=== PATIENT | male | born 1960 | race Caucasian/White ===

== ENCOUNTER → 2020-06-18 | Outpatient (CLI) | payer BC, OTHER | LOC: LABNPT 14:49 | PROVIDERS: ATTEND Family Medicine | DX: Z20.828 Contact with and (suspected) exposure to other viral communicable diseases (principal) | CPT/HCPCS: 87635 ==

== ENCOUNTER → 2020-08-10 | Outpatient (CLI) | payer BC ==
--- NOTE | 2020-08-10 16:32 | Diagnostic Imaging Report ---
PROCEDURE: US carotid duplex, bilateral. TECHNIQUE: Multiple Real-time grayscale images were obtained over the carotid arteries in various projections, bilaterally. Additional spectral analysis and color Doppler duplex images were also obtained. INDICATION: Dizziness, coronary artery disease. COMPARISON: There are no prior studies available for comparison. FINDINGS: There is mild soft plaque formation in both carotid systems. The flow velocities fail to show any evidence for a hemodynamically significant stenosis of the common or internal carotid arteries, however. Both vertebral arteries were noted and there was antegrade flow bilaterally. IMPRESSION: There is mild atherosclerotic disease involving both carotid systems. There is no evidence for a hemodynamically significant stenosis of the common or internal carotid arteries. Parameters based on the consensus panel Senior-Scale and Doppler ultrasound criteria published September 2003, Radiology, Volume 229. DOPPLER (peak systolic velocity M/S Right Left CCA 1.1 1.1 ICA Proximal 1.2 0.86 ICA Mid 1.2 0.70 ICA Distal 1.1 0.56 RATIO 1.1 0.79 ECA 1.2 1 VERT 0.6 0.54 Dictated by: Dictated on workstation # [id number]
== END ==
LOC: RAD 15:30
PROVIDERS: ATTEND Family Medicine
DX: I25.10 Atherosclerotic heart disease of native coronary artery without angina pectoris (principal); I65.23 Occlusion and stenosis of bilateral carotid arteries; Z20.828 Contact with and (suspected) exposure to other viral communicable diseases
CPT/HCPCS: 93880

== ENCOUNTER 2021-01-03 10:19 | Emergency (ER) | payer BC ==
[~2021-01-03] VITALS: Ht 177.8 cm; Wt 95.3 kg
[2021-01-03] MEDS ORDERED: NITROGLYCERIN 0.4 MG SL TABS BTL 25'S SL PRN (11:00)
[2021-01-03] MEDS ORDERED: ONDANSETRON 4 MG/2 ML (SDV) Z0FRAN IVP ONE (11:00)
[2021-01-03] MEDS ORDERED: LACTATED RINGERS 1,000 ML IV SCH (11:00)
[2021-01-03] MEDS ORDERED: PANTOPRAZOLE 40 MG (PROTONIX) VIAL IV ONE (11:00)
[2021-01-03] MEDS ORDERED: morphine INJ 10 MG/ML 1ML (SYR OR VIAL) IVP STA (11:00)
--- NOTE | 2021-01-03 11:07 | ED GI ---
General Chief Complaint: Abdominal/GI Problems Stated Complaint: H BP,N/V,DIZZINESS Nursing Triage Note: PT AMB TO [facility] 6 WITH WITH COMPLAINT OF ABD PAIN, N/V, AND HTN. STATES WOKE UP AT 0600 THIS MORNING NOT FEELING WELL AND TOOK BP, STATES WAS HIGH. AFTERWARDS HE STARTED VOMITING AND ABD PAIN. 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 Sepsis Screen: No Definite Risk Source of Information: Patient Exam Limitations: No Limitations History of Present Illness Date Seen by Provider: Jan 03, 2021 Time Seen by Provider: 10:33 Initial Comments Patient presents ER by private conveyance from home with his spouse and chief complaint that he woke up this morning around 6 with some epigastric discomfort and nausea. The nausea worsened and he has vomited up his green bile. He is not anything to eat. He did try to take his medicines but they were vomited right back up. He has a history of heart attack high blood pressure and drinks about a half a pint of whiskey a day as well as takes diclofenac daily for the past for [address] Muller primary care. Allergies and Home Medications Allergies Coded Allergies: No Known Drug Allergies (Unverified , 01/03/21) Home Medications Ondansetron 4 Mg Tab.rapdis, 4 MG PO Q6H PRN for NAUSEA/VOMITING Prescribed by: EVY CROWLEY on 01/03/211458 Pantoprazole Sodium 20 Mg Tablet.dr, 20 MG PO BID Prescribed by: EVY CROWLEY on 01/03/211458 Sucralfate 1 Gm Tablet, 1 GM PO QIDACHS Prescribed by: EVY CROWLEY on 01/03/21 145 Patient Home Medication List Home Medication List Reviewed: Yes Review of Systems Review of Systems Constitutional: No chills, No diaphoresis, No fever, No malaise EENTM: No Blurred Vision, No Double Vision Respiratory: Denies Cough, Denies Shortness of Air Cardiovascular: Denies Chest Pain, Denies Lightheadedness Gastrointestinal: Denies Constipated, Denies Diarrhea; Nausea, Poor Fluid Intake, Vomiting Genitourinary: Denies Burning, Denies Discharge Musculoskeletal: No back pain, No joint pain Skin: No pruritus, No rash All Other Systems Reviewed Negative Unless Noted: Yes Past Qbevsgq-Pcaatm-Kyicdu Hx Patient Social History Alcohol Use: Regular Use Alcohol Beverage of Choice: Whiskey Smoking Status: Former Smoker Recent Infectious Disease Expo: No Recent Hopitalizations: No Immunizations Up To Date Tetanus Booster (TDap): Unknown PED Vaccines UTD: Yes Seasonal Allergies Seasonal Allergies: No Past Medical History Surgeries: Yes (KNEE, SHOULDER, WRIST, BACK) Orthopedic Respiratory: No Cardiac: Yes Heart Attack, High Cholesterol, Hypertension Neurological: No Genitourinary: No Gastrointestinal: No Musculoskeletal: Yes (SUBOXONE FOR BACK PAIN) Chronic Back Pain Endocrine: No HEENT: No Cancer: No Psychosocial: No Integumentary: No Physical Exam Vital Signs Vital Signs - First Documented 01/03/21 10:25 Temp 37.2 Pulse 114 Resp 21 B/P (MAP) 194/117 (142) Pulse Ox 97 O2 Delivery Room Air Capillary Refill : Less Than 3 Seconds Height/Weight/BMI Height: '" Weight: lbs. oz. kg; 30.00 BMI Method: General Appearance: WD/WN, moderate distress HEENT: PERRL/EOMI, normal ENT inspection, pharynx normal Neck: full range of motion, normal inspection Respiratory: lungs clear, normal breath sounds, no respiratory distress, no accessory muscle use Cardiovascular: normal peripheral pulses, regular rate, rhythm Gastrointestinal: normal bowel sounds, non tender, soft Extremities: normal inspection, normal capillary refill Neurologic/Psychiatric: alert, normal mood/affect, oriented x 3 Skin: normal color, warm/dry Progress/Results/Core Measures Results/Orders Lab Results Laboratory Tests Test 01/03/21 10:30 Range/Units White Blood Count 11.0 4.3-11.0 10^3/uL Red Blood Count 4.91 4.30-5.52 10^6/uL Hemoglobin 16.7 13.3-17.7 g/dL Hematocrit 45 40-54 % Mean Corpuscular Volume 92 80-99 fL Mean Corpuscular Hemoglobin 34 25-34 pg Mean Corpuscular Hemoglobin Concent 37 H 32-36 g/dL Red Cell Distribution Width 12.7 10.0-14.5 % Platelet Count 216 130-400 10^3/uL Mean Platelet Volume 9.8 9.0-12.2 fL Immature Granulocyte % (Auto) 1 % Neutrophils (%) (Auto) 83 H 42-75 % Lymphocytes (%) (Auto) 10 L 12-44 % Monocytes (%) (Auto) 6 0-12 % Eosinophils (%) (Auto) 0 0-10 % Basophils (%) (Auto) 0 0-10 % Neutrophils # (Auto) 9.2 H 1.8-7.8 10^3/uL Lymphocytes # (Auto) 1.1 1.0-4.0 10^3/uL Monocytes # (Auto) 0.6 0.0-1.0 10^3/uL Eosinophils # (Auto) 0.0 0.0-0.3 10^3/uL Basophils # (Auto) 0.0 0.0-0.1 10^3/uL Immature Granulocyte # (Auto) 0.1 0.0-0.1 10^3/uL Prothrombin Time 13.8 12.2-14.7 SEC INR Comment 1.0 0.8-1.4 Activated Partial Thromboplast Time 26 24-35 SEC Sodium Level 139 135-145 MMOL/L Potassium Level 3.8 3.6-5.0 MMOL/L Chloride Level 100 98-107 MMOL/L Carbon Dioxide Level 22 21-32 MMOL/L Anion Gap 17 H 5-14 MMOL/L Blood Urea Nitrogen 18 7-18 MG/DL Creatinine 0.91 0.60-1.30 MG/DL Estimat Glomerular Filtration Rate > 60 BUN/Creatinine Ratio 20 Glucose Level 116 H 70-105 MG/DL Calcium Level 9.2 8.5-10.1 MG/DL Corrected Calcium 8.5-10.1 MG/DL Magnesium Level 2.0 1.6-2.4 MG/DL Total Bilirubin 1.2 H 0.1-1.0 MG/DL Aspartate Amino Transf (AST/SGOT) 54 H 5-34 U/L Alanine Aminotransferase (ALT/SGPT) 67 H 0-55 U/L Alkaline Phosphatase 84 40-136 U/L Myoglobin 37.9 10.0-92.0 NG/ML Troponin I < 0.028 <0.028 NG/ML Total Protein 8.5 H 6.4-8.2 GM/DL Albumin 4.8 H 3.2-4.5 GM/DL Lipase 39 8-78 U/L My Orders Orders - EVY CROWLEY Ekg Tracing (01/03/21 10:22) Continuous Ekg Monitoring (01/03/21 10:22) Cbc With Automated Diff (01/03/21 11:00) Magnesium (01/03/21 11:00) Chest 1 View, Ap/Pa Only (01/03/21 11:00) Ekg Tracing (01/03/21 11:00) Comprehensive Metabolic Panel (01/03/21 11:00) Myoglobin Serum (01/03/21 11:00) Protime With Inr (01/03/21 11:00) Partial Thromboplastin Time (01/03/21 11:00) O2 (01/03/21 11:00) Monitor-Rhythm Ecg Trace Only (01/03/21 11:00) Ed Iv/Invasive Line Start (01/03/21 11:00) Lipase (01/03/21 11:00) Troponin I (01/03/21 11:00) Nitroglycerin 0.4 Mg Btl 25's (Nitrostat (01/03/21 11:00) Lactated Ringers (Lr 1000 Ml Iv Solution (01/03/21 11:00) Ondansetron Injection (Zofran Injectio (01/03/21 11:00) Pantoprazole Injection (Protonix Injecti (01/03/21 11:00) Morphine Injection (Morphine Injection (01/03/21 11:00) Ct Abdomen/Pelvis W (01/03/21 11:08) Iohexol Injection (Omnipaque 350 Mg/Ml 1 (01/03/21 12:00) Di Iv Start (Assessment) .IV start (01/03/21 11:59) Received Contrast (Hold Metformin- Contr (01/03/21 12:00) Sodium Chloride Flush (Catheter Flush Sy (01/03/21 12:00) Ns (Ivpb) (Sodium Chloride 0.9% Ivpb Bag (01/03/21 12:00) Medications Given in ED Current Medications Medications Dose Ordered Sig/Homer Route Start Time Stop Time Status Last Admin Dose Admin Iohexol 100 ml ONCE ONCE IV 01/03/21 12:00 01/03/21 12:08 DC 01/03/21 12:19 100 ML Nitroglycerin 0.4 mg UD PRN SL 01/03/21 11:00 01/03/21 15:12 DC 01/03/21 11:19 0.4 MG Ondansetron HCl 8 mg ONCE ONCE IVP 01/03/21 11:00 01/03/21 11:03 DC 01/03/21 11:19 8 MG Pantoprazole 40 mg ONCE ONCE IV 01/03/21 11:00 01/03/21 11:03 DC 01/03/21 11:19 40 MG Sodium Chloride 10 ml NEEDED PRN IV 01/03/21 12:00 01/03/21 15:12 DC 01/03/21 12:19 10 ML Sodium Chloride 100 ml ONCE ONCE IV 01/03/21 12:00 01/03/21 12:08 DC 01/03/21 12:19 80 ML Vital Signs/I&O 01/03/21 01/03/21 10:25 15:12 Temp 37.2 Pulse 114 97 Resp 21 20 B/P (MAP) 194/117 (142) 165/108 Pulse Ox 97 99 O2 Delivery Room Air Room Air Blood Pressure Mean: 142 Progress Progress Note #1: Time: 11:06 Progress Note Plan to give him 8 mg of Zofran, some fluids and get some labs including a lipase. Pancreatitis, gastritis, PUD etc. There is an opportunity for a perforating ulcer as the patient does have some pretty decent tenderness so organ to give him some morphine and get a CT scan of the abdomen and pelvis. IV pantoprazole. He could possibly be having atypical coronary syndrome so we will give nitroglycerin when we get his nausea under control. We will probably hold off on aspirin since a ulcer is a possibility. Progress Note #2: Time: 14:09 Progress Note Patient symptoms are gone after the antiacids and he declined the morphine. General surgeon noted a mild enlargement of the appendix and thought about a come out just to be examined for histopathology. Patient agrees with this. I have suggested the patient that he may have an alcoholic gastritis related to the NSAIDs and need to go on Carafate and antacids and follow-up for EGD with Dr. Zeng. Dr. Zeng is going to see the patient briefly and then will probably let him go. Progress Note #3: Time: 14:[address] Zeng discussed the case and will follow up in the clinic. Initial ECG Impression Date: Jan 03, 2021 Initial ECG Impression Time: 10:33 Initial ECG Rate: 113 Initial ECG Rhythm: S.Tach Initial ECG Intervals: QT (472) Initial ECG Impression: Normal Initial ECG Comparisson: Unchanged Comment Sinus tachycardia without clinically relevant ST changes. Diagnostic Imaging Diagonstic Imaging: Xray Plain Films/CT/US/NM/MRI: chest Comments [facility] [place] [place] NAME: EDI [facility]TER [facility] REC#: [id number] PT STATUS: REG ER : 1960 PHYSICIAN: EVY CROWLEY MD ADMIT DATE: 01/03/21/ER Signed Date of Exam:01/03/21 CHEST 1 VIEW, AP/PA ONLY HISTORY: Nausea and vomiting with hypertension. Chest pain. COMPARISON: None TECHNIQUE: Frontal view of the chest FINDINGS: Lung volumes are normal. No focal consolidation is seen. There is no pleural effusion or pneumothorax. The cardiac silhouette is normal in size. Suture anchors are noted in the humeral heads. IMPRESSION: 1. No acute pulmonary abnormality. Dictated by: Dictated on workstation # [id number] Dict: 01/03/21 1137 Trans: 01/03/21 1146 [facility] [id number] Interpreted by: ARIEL SPENCER MD Electronically signed by: ARIEL SPENCER MD 01/03/21 1146 Reviewed: Reviewed by Me Diagonstic Imaging: CT Plain Films/CT/US/NM/MRI: abdomen, pelvis Comments [facility] [place] [place] NAME: EDI [facility] REC#: [id number] PT STATUS: REG ER : 1960 PHYSICIAN: EVY CROWLEY MD ADMIT DATE: 01/03/21/ER Signed Date of Exam:01/03/21 CT ABDOMEN/PELVIS W CT ABDOMEN/PELVIS W TECHNIQUE: Multiple contiguous axial images were obtained through the abdomen and pelvis after administration of intravenous contrast. All CT scans use one or more of the following dose optimizing techniques: automated exposure control, MA and/or KvP adjustment based on a patient size and exam type, or iterative reconstruction. INDICATION: Epigastric pain with nausea and vomiting. COMPARISON: None available. FINDINGS: Lower chest: The lung bases are clear. No pericardial or pleural effusion. Peritoneum: No free intraperitoneal air or fluid. Liver and biliary system: Liver is enlarged measuring 19.5 cm in length. It has diffuse hypoattenuation indicative of severe hepatic steatosis. No focal hepatic lesion or nodularity to liver surface. Portal vein remains patent. The gallbladder is normal. No biliary duct dilation. Spleen and Pancreas: Spleen is normal. The pancreas enhances normally without mass lesion or peripancreatic inflammatory changes. Adrenals: Normal. tract: The kidneys enhance normally without suspicious mass or obstruction. Urinary bladder is distended without wall thickening. Prostate is not enlarged. Seminal vesicles are symmetric. GI tract: Stomach is partially filled with fluid and there is no discrete wall thickening. No bowel obstruction. No pericolonic inflammatory changes. Normal appendix. Vasculature and Lymph nodes: Normal caliber aorta. No abdominal or pelvic lymphadenopathy. Musculoskeletal: No concerning osseous lesion. Anterior lumbar interbody fusion of L5-S1 has solid interbody fusion present and no hardware complication. IMPRESSION: 1. No acute inflammatory or obstructive process. Specifically, there are no features of pancreatitis or perforated peptic ulcer disease. 2. Hepatomegaly with severe hepatic steatosis. Dictated by: Dictated on workstation # [id number] Dict: 01/03/21 1257 Trans: 01/03/21 1302 [id number] Interpreted by: ELLIOTT CASTAÑEDA MD Electronically signed by: ELLIOTT CASTAÑEDA MD 01/03/21 1302 Reviewed: Reviewed by Me Departure Impression Primary Impression: Gastritis and duodenitis Additional Impression: Dilated appendix Disposition: 01 HOME, SELF-CARE Condition: Improved Departure-Patient Inst. Decision time for Depature: 14:54 Referrals: ORAL ZENG DANIEL J MD (PCP/Family) Primary Care Physician Patient Instructions: Gastritis (DC) Add. Discharge Instructions: I suspect your symptoms are because of an irritation of the lining of your stomach which could include an ulcer. Pantoprazole 20 mg twice a day for the next 4 weeks. This will reduce the amount of acid in your stomach. Carafate half an hour before meals and at bedtime for the next 2 weeks. This will line your stomach and esophagus and prevent further irritation by acid. Promptly stop using diclofenac and other NSAIDs such as ibuprofen, Aleve, naproxen etc. Work to reduce and eventually quit using alcohol as this is probably a major contributor to your symptoms. Your primary care doctor can help you manage withdrawal symptoms should you encounter any. Zofran 1 tablet every 6 hours as necessary for nausea and/or vomiting. Tylenol 1000 mg every 8 hours as necessary for pain. Topical creams such as icy hot, Biofreeze etc. Applied to the joints that hurt. Return to the ER for intractable vomiting, pain or fever above 100.3. Tomorrow morning call Dr. Zeng's office after 8 AM and request a follow-up appointment this week to discuss EGD and having your appendix removed for pathology examination. All discharge instructions reviewed with patient and/or family. Voiced understanding. Scripts Pantoprazole Sodium (Pantoprazole Sodium) 20 Mg Tablet.dr 20 MG PO BID for 30 Days, #60 TAB 0 Refills Prov: EVY CROWLEY 01/03/21 Sucralfate (Carafate) 1 Gm Tablet 1 GM PO QIDACHS for 14 Days, #56 TAB 0 Refills Prov: EVY CROWLEY 01/03/21 Ondansetron (Ondansetron Odt) 4 Mg Tab.rapdis 4 MG PO Q6H PRN for NAUSEA/VOMITING, #8 TAB 0 Refills Prov: EVY CROWLEY 01/03/21 Copy Copies To 1: ORAL ZENG DO EVY CROWLEY Jan 03, 2021 11:07
[2021-01-03 11:09] LABS: BASOPHILS % (AUTO) 0 % (0-10); EOSINOPHILS % (AUTO) 0 % (0-10); HEMATOCRIT 45 % (40-54); HEMOGLOBIN 16.7 g/dL (13.3-17.7); LYMPHOCYTES # (AUTO) 1.1 10^3/uL (1.0-4.0); LYMPHOCYTES % (AUTO) 10 % (12-44); MEAN CORPUSCULAR HEMOGLOBIN 34 pg (25-34); MEAN CORPUSCULAR HGB CONC 37 g/dL (32-36); MEAN CORPUSCULAR VOLUME 92 fL (80-99); MEAN PLATELET VOLUME 9.8 fL (9.0-12.2); MONOCYTES # (AUTO) 0.6 10^3/uL (0.0-1.0); MONOCYTES % (AUTO) 6 % (0-12); NEUTROPHILS # (AUTO) 9.2 10^3/uL (1.8-7.8); NEUTROPHILS % (AUTO) 83 % (42-75); PLATELET COUNT 216 10^3/uL (130-400)
[2021-01-03 11:11] LABS: ALBUMIN 4.8 GM/DL (3.2-4.5); CHLORIDE 100 MMOL/L (98-107); POTASSIUM 3.8 MMOL/L (3.6-5.0); SODIUM 139 MMOL/L (135-145)
[2021-01-03 11:13] LABS: CALCIUM 9.2 MG/DL (8.5-10.1)
[2021-01-03 11:14] LABS: GLUCOSE 116 MG/DL (70-105); PROTHROMBIN TIME PATIENT 13.8 SEC (12.2-14.7); TOTAL PROTEIN 8.5 GM/DL (6.4-8.2)
[2021-01-03 11:15] LABS: CARBON DIOXIDE 22 MMOL/L (21-32)
[2021-01-03 11:16] LABS: BILIRUBIN,TOTAL 1.2 MG/DL (0.1-1.0)
[2021-01-03 11:17] LABS: ALKALINE PHOSPHATASE 84 U/L (40-136); CREATININE SERUM 0.91 MG/DL (0.60-1.30); GFR ESTIMATED > 60
[2021-01-03 11:18] LABS: BUN/CREATININE RATIO 20
[2021-01-03 11:20] LABS: ALANINE AMINOTRANSFERASE 67 U/L (0-55)
[2021-01-03 11:21] LABS: LIPASE 39 U/L (8-78)
--- NOTE | 2021-01-03 11:40 | Diagnostic Imaging Report ---
HISTORY: Nausea and vomiting with hypertension. Chest pain. COMPARISON: None TECHNIQUE: Frontal view of the chest FINDINGS: Lung volumes are normal. No focal consolidation is seen. There is no pleural effusion or pneumothorax. The cardiac silhouette is normal in size. Suture anchors are noted in the humeral heads. IMPRESSION: 1. No acute pulmonary abnormality. Dictated by: Dictated on workstation # [id number]
[2021-01-03] MEDS ORDERED: HOLD METFORMIN - RECEIVED CONTRAST 20 ML VIAL IV SCH (12:00)
[2021-01-03] MEDS ORDERED: CATHETER FLUSH 10 ML SYR IV PRN (12:00)
[2021-01-03] MEDS ORDERED: IOHEXOL 350 MG/ML 100 ML (OMNIPAQUE 350) VIAL IV ONE (12:00)
[2021-01-03] MEDS ORDERED: NS 100 ML (IVPB) BAG IV ONE (12:00)
--- NOTE | 2021-01-03 13:04 | Diagnostic Imaging Report ---
CT ABDOMEN/PELVIS W TECHNIQUE: Multiple contiguous axial images were obtained through the abdomen and pelvis after administration of intravenous contrast. All CT scans use one or more of the following dose optimizing techniques: automated exposure control, MA and/or KvP adjustment based on a patient size and exam type, or iterative reconstruction. INDICATION: Epigastric pain with nausea and vomiting. COMPARISON: None available. FINDINGS: Lower chest: The lung bases are clear. No pericardial or pleural effusion. Peritoneum: No free intraperitoneal air or fluid. Liver and biliary system: Liver is enlarged measuring 19.5 cm in length. It has diffuse hypoattenuation indicative of severe hepatic steatosis. No focal hepatic lesion or nodularity to liver surface. Portal vein remains patent. The gallbladder is normal. No biliary duct dilation. Spleen and Pancreas: Spleen is normal. The pancreas enhances normally without mass lesion or peripancreatic inflammatory changes. Adrenals: Normal. tract: The kidneys enhance normally without suspicious mass or obstruction. Urinary bladder is distended without wall thickening. Prostate is not enlarged. Seminal vesicles are symmetric. GI tract: Stomach is partially filled with fluid and there is no discrete wall thickening. No bowel obstruction. No pericolonic inflammatory changes. Normal appendix. Vasculature and Lymph nodes: Normal caliber aorta. No abdominal or pelvic lymphadenopathy. Musculoskeletal: No concerning osseous lesion. Anterior lumbar interbody fusion of L5-S1 has solid interbody fusion present and no hardware complication. IMPRESSION: 1. No acute inflammatory or obstructive process. Specifically, there are no features of pancreatitis or perforated peptic ulcer disease. 2. Hepatomegaly with severe hepatic steatosis. Dictated by: Dictated on workstation # [id number]
[2021-01-03] MEDS ORDERED: SUCR1TAB36 PO (14:59)
[2021-01-03] MEDS ORDERED: ONDA4TAB11 PO (14:59)
[2021-01-03] MEDS ORDERED: PANT20TA18 PO (14:59)
[2021-01-03 15:12] VITALS: BP 165/108
== END 2021-01-03 15:12 | disposition home or self-care (01) ==
LOC: EDUNIT# 10:19 → ER 10:21
DX: K29.90 Gastroduodenitis, unspecified, without bleeding (principal); K38.8 Other specified diseases of appendix; I25.2 Old myocardial infarction; Z87.891 Personal history of nicotine dependence
CPT/HCPCS: 36415; 71045; 74177; 80053; 83690; 83735; 83874; 84484; 85025; 85610; 85730; 93005; 93041

== ENCOUNTER 2021-01-17 05:34 | Outpatient (RCR) | payer BC ==
[~2021-01-17] VITALS: Ht 177.8 cm; Wt 95.5 kg
[~2021-01-17 05:34] MED LIST: AMLO-250 PO; BUPR1FIL3 SL; DICL75TA2 PO; LOSA100T57 PO; ONDA4TAB11 PO; PANT20TA18 PO; SIMV20TA26 PO; SUCR1TAB36 PO; TEST75GE12 TD
== END 2021-01-17 10:24 | disposition home or self-care (01) ==
LOC: PREOP 05:34
PROVIDERS: ATTEND Surgery
DX: Z01.812 Encounter for preprocedural laboratory examination (principal); K38.8 Other specified diseases of appendix; Z20.822 Contact with and (suspected) exposure to COVID-19
CPT/HCPCS: 87635

== ENCOUNTER 2021-01-19 10:47 | Day surgery (SDC) | payer BC ==
[2021-01-19] VITALS (11 sets, daily range): BP systolic 118–159; BP diastolic 71–98
[~2021-01-19] VITALS: Ht 177.8 cm; Wt 95.5 kg
[2021-01-19] MEDS ORDERED: LIDOCAINE/EPI 1%-1:100,000 (XYLOCAINE) 50 ML ONE (10:53)
[2021-01-19] MEDS ORDERED: ceFAZolin 2 GM IV Premixed 50 ML IV ONE (11:15)
[2021-01-19] MEDS ORDERED: GLYCOPYRROLATE 0.2 MG/ML (ROBINUL) 2 ML VIAL ONE (11:17)
[2021-01-19] MEDS ORDERED: NEOSTIGMINE 3 MG/3 ML VIAL ONE (11:17)
[2021-01-19] MEDS ORDERED: SEVOFLURANE (ULTANE) 15 ML INHAL SOLN ONE (11:17)
[2021-01-19] MEDS ORDERED: ROCURONIUM 10 MG/ML 5 ML SYRINGE IV ONE (11:17)
[2021-01-19] MEDS ORDERED: LIDOCAINE PF 2% 5 ML (XYLOCAINE) VIAL ONE (11:17)
[2021-01-19] MEDS ORDERED: fentaNYL INJ 100 MCG/2 ML AMP ONE (11:17)
[2021-01-19] MEDS ORDERED: proPOfol 200 MG/20 ML (DIPRIVAN) VIAL IV ONE (11:17)
[2021-01-19] MEDS ORDERED: MIDAZOLAM 2 MG/2 ML (VERSED) VIAL ONE (11:17)
[2021-01-19] MEDS ORDERED: ONDANSETRON 4 MG/2 ML (SDV) Z0FRAN ONE (11:17)
[2021-01-19] MEDS: LACTATED RINGERS 1,000 ML IV PRN ×2 (11:30→12:53)
--- NOTE | 2021-01-19 11:30 | Progress Note-Pre Operative ---
Pre-Operative Progress Note H&P Reviewed The H&P was reviewed, patient examined and no changes noted. Time Seen by Provider: 11:26 Date H&P Reviewed: Jan 19, 2021 Time H&P Reviewed: 11: Pre-Operative Diagnosis: Enlarged appendix ORAL ZENG DO Jan 19, 2021 11:30
[2021-01-19] MEDS ORDERED: HYDROmorphone 2 MG/ML VIAL (DILAUDID) ONE (11:56)
--- NOTE | 2021-01-19 12:19 | Progress Note-Post Operative ---
Post-Operative Progess Note Surgeon (s)/Knitting Machine Mechanic (s) Surgeon ORAL ZENG DO Knitting Machine Mechanic: CARLEY Solitario Pre-Operative Diagnosis Enlarged appendix Post-Operative Diagnosis same pending path Procedure & Operative Findings Date of Procedure 01/19/21 Procedure Performed/Findings PROCEDURE: Laparoscopic appendectomy. COMPLICATIONS: None. INDICATIONS: The patient is a 60 year old male who had a CT which indicated an abnormally large appendix; concern for malignancy. I discussed risk and benefits of laparoscopic appendectomy and all indicated procedures with the possibility being a normal appendix. The patient understands the risks and benefits and wishes to proceed. Consent was signed on the chart. DESCRIPTION OF PROCEDURE: The patient was taken to the operating suite, prepped and draped in a sterile fashion. Timeout was performed. Local anesthetic was infiltrated just above the umbilicus and 11-blade scalpel was used to make a skin incision. Cautery was used to dissect down to the fascia and scored. Kochers were used to grasp and elevate it and the abdomen was then entered. A 0 Vicryl was placed in a [id number] fashion for closure at the end of the case. The balloon trocar was inserted into the abdomen and pneumoperitoneum was achieved. Under direct visualization of the laparoscope, a 5 mm trocar was placed in the suprapubic region and a 5 mm trocar was placed in the left lower quadrant. Appendix was located, appendix was enlarged and looked odd; questionable mass at the tip and enlarged throughout appendix. The base of the appendix was dissected around. Once at the base an Endo-CHEMO 2.5 stapler was then fired across the base of the appendix. The mesoappendix was then divided. It was then placed in an Endobag and removed through the 12 mm trocar site. The abdomen was then irrigated and suctioned. No other pathology noted. The abdomen was then desufflated and the trocars were removed. The 0 Vicryl placed at the beginning of the case was then tied closing the 12 mm fascial defect. The skin was then closed using 4-0 Monocryl in a subcuticular fashion. The abdomen was then washed and dried and Skin Affix was placed over the incisions. The patient tolerated the procedure well without any complications and was taken to the recovery room in stable condition. Anesthesia Type GET Estimated Blood Loss Estimated blood loss (mL): scant Specimens/Packing Specimens Removed appy DELMAN,ORAL B DO Jan 19, 2021 12:19
[2021-01-19] MEDS ORDERED: ACHD5005 PO (12:20)
--- NOTE | 2021-01-19 12:21 | Discharge Inst-Surgical ---
Discharge Inst-Surgical Depart Medication/Instructions New, Converted or Re-Newed RX: RX Given to Pt/Family Patient Instructions Follow up Appt: Make appointment for 1 week. [phone] Instructions: No lifting greater than 20 pounds. No strenuous activity. May shower in 24 hours, no tub bath or soaking. Use incentive spirometer at home as directed. No Smoking Skin/Wound Care: May remove bandages in am. You need to leave the Dermabond on incision it will fall off on it's own. Symptoms to Report: Appetite Changes, Extremity Discoloration, Numbness/Tingling, Swelling Increased, Bleeding Excessive, Eyesight Changes, Pain Increased, Urine Color Change, Constipation(Persistent), Fever over 101 degree F, Pain/Pressure in chest, Urinating Difficulty, Cough Up/Vomit Blood, Heart Beat Irreg/Pounding, Pain/Pressure in jaw, Cramps in feet or legs, Lightheadedness, Pain/Pressure in shoulder, Diarrhea(Persistent), Memory Changes Suddenly, Questions/Concerns, Weight gain consecutive days, Dizziness/Fainting, Nausea/Vomiting, Shortness of Breath, Weight gain over 2 pounds If questions or concerns contact your physician Or seek help at emergency department. Activity Activity as Tolerated: Yes Activity Instructions: Avoid Stress to Incision Driving Instructions: No Driving/Refer to Dr. Pratt Discharge Diet: No Restrictions Diet After 24 Hours: Clear Liquid if Nauseous If Any Problems/Questions/Issu: Contact Your Physician, Go to Emergency Room Skin/Wound Care Infection Signs and Symptoms: Increased Redness, Foul Odor of Wound, Increased Drainage, Skin Itchy or Has a Rash, Increased Swelling, Temperature Above 101 F Wound Care Comment: heating pad to shoulder or neck tonight for pain Bathing Instructions: Shower Stitches/Gokul/Dermabond Dis: Dermabond Ice Pack: Ice On and Off Site ORAL ZENG DO Jan 19, 2021 12:21
[2021-01-19] MEDS ORDERED: HYDROmorphone 2 MG/ML VIAL (DILAUDID) IV ONE (12:45)
[2021-01-19] MEDS ORDERED: morphine INJ 10 MG/ML 1ML (SYR OR VIAL) IVP ONE (12:45)
[2021-01-19] MEDS ORDERED: ONDANSETRON 4 MG/2 ML (SDV) Z0FRAN IVP PRN (12:45)
--- NOTE | 2021-01-19 13:14 | Anesthesia-General Post-Op ---
General Patient Condition Mental Status/LOC: Same as Preop Cardiovascular: Satisfactory Nausea/Vomiting: Absent Respiratory: Satisfactory Pain: Controlled Complications: Absent Post Op Complications Complications None Follow Up Care/Instructions Patient Instructions None needed. Anesthesia/Patient Condition Patient Condition Patient is doing well, resting comfortably, no C/O pain or nausea, stable vital signs, no apparent adverse anesthesia problems. SaO2 low 90's so will most likely send to [facility] with O2 via [place] as he continues his recovery. JORGE L SUBRAMANIAN DO Jan 19, 2021 13:14
== END 2021-01-19 14:40 | disposition home or self-care (01) ==
LOC: SDC 10:47
PROVIDERS: ATTEND Surgery
DX: C18.1 Malignant neoplasm of appendix (principal); K38.0 Hyperplasia of appendix; I10 Essential (primary) hypertension; E66.9 Obesity, unspecified; Z68.30 Body mass index [BMI] 30.0-30.9, adult; Z79.899 Other long term (current) drug therapy; Z87.891 Personal history of nicotine dependence
CPT/HCPCS: 87081; 88304

== ENCOUNTER → 2021-12-12 | Outpatient (RCR) | payer BC, OTHER ==
[~2021-12-12] VITALS: Ht 177.8 cm; Wt 89.8 kg
[~2021-12-12] MED LIST changes: +ACHD5005 PO; +AMLO-251 PO; +OMEP20TA7 PO; +SILD20TA14 PO
== END | disposition home or self-care (01) ==
LOC: PREOP 05:38 → EDSTATUS 11:00 → PREOP 15:03
PROVIDERS: ATTEND Surgery
DX: Z01.818 Encounter for other preprocedural examination (principal)

== ENCOUNTER 2021-12-19 08:24 | Day surgery (SDC) | payer BC, OTHER ==
[~2021-12-19] VITALS: Ht 177.8 cm; Wt 89.8 kg
[2021-12-19] MEDS ORDERED: LACTATED RINGERS 1,000 ML IV STA (08:26)
[2021-12-19] MEDS ORDERED: LACTATED RINGERS 1,000 ML IV ONE (08:28)
[2021-12-19] MEDS ORDERED: HURRICAINE EXT TUBE (BENZOCAINE) XX PRN (08:30)
[2021-12-19 08:48] VITALS: BP 162/102
--- NOTE | 2021-12-19 09:18 | Progress Note-Pre Operative ---
Pre-Operative Progress Note H&P Reviewed The H&P was reviewed, patient examined and no changes noted. Time Seen by Provider: 09:16 Date H&P Reviewed: Dec 19, 2021 Time H&P Reviewed: 09:16 Pre-Operative Diagnosis: Screening, ORAL MORGAN DO Dec 19, 2021 09:18
[2021-12-19] MEDS ORDERED: MIDAZOLAM 2 MG/2 ML (VERSED) VIAL ONE (09:55)
[2021-12-19] MEDS ORDERED: PROPOFOL INJECTION 50 ML IV ONE (09:56)
[2021-12-19] MEDS ORDERED: proPOfol 200 MG/20 ML (DIPRIVAN) VIAL IV ONE (10:22)
[2021-12-19 10:40] VITALS: BP 153/97
[2021-12-19 10:45] VITALS: BP 144/95
--- NOTE | 2021-12-19 10:48 | Progress Note-Post Operative ---
Post-Operative Progess Note Surgeon (s)/Flow Floor Attendant (s) Surgeon ORAL ZENG DO Flow Floor Attendant: CARLEY Meza Pre-Operative Diagnosis Screening, GERD Post-Operative Diagnosis Severe gastritis esophagitis polyp Colitis int hemorrhoids Procedure & Operative Findings Date of Procedure 12/19/21 Procedure Performed/Findings EGD with biopsy Colon with snare polypectomy Colon with cold biopsy PROCEDURE NOTE: After informed consent was obtained, the patient was brought to the endoscopy suite, placed in bed in left lateral decubitus position. He was administered IV sedation by the ENERGY INFRASTRUCTURE ENGINEER who then monitored vitals the entire time, heart rate, blood pressure and pulse ox and the scope was inserted down the mouth through the esophagus into the stomach. On the way down, noted some mild esophagitis, took a picture and pushed into the stomach. Noted severe gastritis and took a picture, then pushed past the antrum into the duodenum; duodenum looked good. Pulled back and did a biopsy of antrum and then retroflexed the scope. I did not see a hiatal hernia and then pulled the scope into the GE junction. Then did a biopsy of the GE junction. Pushed the scope back into the stomach, suctioned all the air out of the stomach. At this point pulled the scope up the esophagus and out the mouth. Switched camera, switched gloves, went down below and started the colonoscopy. Pushed all the way into about 140 cm to get all the way to the cecum. Took a picture of the appendiceal orifice, noted the ileocecal valve and t hen slowly withdrew the scope, insufflating to look circumferentially at the blake starting in the cecum, up the ascending colon to the hepatic flexure, then down the transverse colon to the splenic flexure and into the descending colon. Starting in the descending colon I saw colitis, took a picture and then started doing biopsies of the colon. I took a biopsy of the descending, sigmoid, and rectum; throughout the way down continued to see colitis. In the sigmoid I saw a polyp and elected to do a snare polypectomy to completely remove it. Finally into the rectum, retroflexed in the rectal vault, saw some minimal internal hemorrhoids and took a picture of this. The patient tolerated the procedure and he recovered in the endoscopy suite. Anesthesia Type IV sedation by ENERGY INFRASTRUCTURE ENGINEER Estimated Blood Loss Estimated blood loss (mL): scant Specimens/Packing Specimens Removed antral bx body of stomach bx GE jxn bx Desc, sigmoid and rectal bx sigmoid polyp ORAL ZENG DO Dec 19, 2021 10:48
--- NOTE | 2021-12-19 10:56 | Endoscopy Discharge Instruct ---
Endo Procedure/Findings Findings 1.: Gastritis (severe) 2.: Other Findings (esophagitis) 3.: Polyp 4.: Colitis, Internal Hemorrhoids Discharge Instructions - Activity: You might feel a little sleepy until tomorrow. This is due to the medicine you received to relax you. Until tomorrow, you should: NOT drive a car, operate machinery or power tools. NOT drink any alcoholic beverages. NOT make any important decisions or sign importortant papers. Do not return to work until tomorrow, unless otherwise instructed. Resume previous activities tomorrow. Diet: Start by taking liquids. If you tolerate liquids, advance to solid food. 1.: EGD in 3 years 2.: Colonoscopy in 1 year Notify Physician - If you experience excessive bleeding, unusual abdominal pain, fever, or chest pain, contact your doctor immediately. ORAL ZENG DO Dec 19, 2021 10:56
[2021-12-19 11:15] VITALS: BP 170/110
--- NOTE | 2021-12-19 12:31 | Anesthesia-General Post-Op ---
MAC Patient Condition Mental Status/LOC: Same as Preop Cardiovascular: Satisfactory Nausea/Vomiting: Absent Respiratory: Satisfactory Pain: Controlled Complications: Absent Post Op Complications Complications None Follow Up Care/Instructions Patient Instructions None needed. Anesthesiology Discharge Order Discharge Order Patient is doing well, no complaints, stable vital signs, no apparent adverse anesthesia problems. No complications reported per nursing. CLAIRE CASANOVA CRNA Dec 19, 2021 12:31
== END 2021-12-19 11:30 | disposition home or self-care (01) ==
LOC: ENDO 08:24
PROVIDERS: ATTEND Surgery
DX: K63.5 Polyp of colon (principal); K21.00 Gastro-esophageal reflux disease with esophagitis, without bleeding; K29.70 Gastritis, unspecified, without bleeding; K52.9 Noninfective gastroenteritis and colitis, unspecified; K64.8 Other hemorrhoids; I10 Essential (primary) hypertension; Z87.891 Personal history of nicotine dependence; Z79.899 Other long term (current) drug therapy; Z86.018 Personal history of other benign neoplasm